=== PATIENT | male | born 1995 ===

== ENCOUNTER 2025-01-07 11:56 | Emergency (ER) | payer BC ==
[2025-01-07 14:00] VITALS: BP 122/69; PULSE 70
== END 2025-01-07 14:00 | disposition home or self-care (01) ==
LOC: MW.ED 11:56
DX: M54.41 Lumbago with sciatica, right side (principal); M54.42 Lumbago with sciatica, left side; Z91.030 Bee allergy status; Z91.018 Allergy to other foods; Z88.8 Allergy status to other drugs, medicaments and biological substances
CPT/HCPCS: 96372; 99283; A9270; J1100